=== PATIENT | female | born 1970 | race Caucasian/White ===

== ENCOUNTER → 2016-08-05 | Outpatient (CLI) | payer BC ==
[2016-08-05 11:08] LABS: CHLORIDE,CL 103 mmol/L (98-110); SODIUM,NA 140 mmol/L (136-146)
== END | disposition home or self-care (01) ==
LOC: MW.CHFP 10:00
PROVIDERS: ATTEND Student in an Organized Health Care Education/Training Program
DX: Z01.818 Encounter for other preprocedural examination (principal); I10 Essential (primary) hypertension; E78.1 Pure hyperglyceridemia
CPT/HCPCS: 36415; 80053; 81001; 84439; 84443; 85025; 85610; 85730

== ENCOUNTER → 2016-08-13 | Outpatient (CLI) | payer BC ==
--- NOTE | 2016-08-13 14:58 | CR ---
EXAMINATION: Two-view chest (PA and Lateral views). HISTORY: Hypertension. FINDINGS: The trachea is midline. The cardiomediastinal silhouette is within normal limits. No pulmonary infil trates, effusions or pneumothorax. Osseous structures appear unremarkable. IMPRESSION: No acute cardiopulmonary process.
== END ==
LOC: MW.CHFP 14:11
PROVIDERS: ATTEND Student in an Organized Health Care Education/Training Program
DX: I10 Essential (primary) hypertension (principal); N39.0 Urinary tract infection, site not specified
CPT/HCPCS: 71020; 71020-26; 81001

== ENCOUNTER 2017-10-26 06:36 | Observation (INO) | payer BC ==
[2017-10-26] MEDS ORDERED: Aspirin 325 MG Tab PO ONE (07:05)
[2017-10-26] MEDS ORDERED: Sodium Chloride 0.9% 2.5 ML Syringe FLUSH PRN (07:05)
[2017-10-26] MEDS ORDERED: Sodium Chloride 0.9% 10 ML Syringe FLUSH PRN (07:05)
--- NOTE | 2017-10-26 07:08 | EDM.PDOC ---
ED HPI GENERAL MEDICAL PROBLEM - General Chief Complaint: Chest Pain Stated Complaint: CHEST PAINS Time Seen by Provider: 10/26/17 06:58 - History of Present Illness INITIAL COMMENTS - FREE TEXT/NARRATIVE: HISTORY AND PHYSICAL: History of present illness: Patient 47-year-old female presents with a concern chest and upper back pain has been 1 day she equivocates regarding any associated shortness of breath but no diaphoresis nausea vomiting or other complaints. She denies palpitations she denies known cardiac disease Review of systems: As per history of present illness and below otherwise all systems reviewed and negative. Past medical history: As per history of present illness and as reviewed below otherwise noncontributory. Surgical history: As per history of present illness and as reviewed below otherwise noncontributory. Social history: No reported history of drug or alcohol abuse. Family history: As per history of present illness and as reviewed below otherwise noncontributory. Physical exam: HEENT: Atraumatic, normocephalic, pupils reactive, negative for conjunctival pallor or scleral icterus, mucous membranes moist, throat clear, neck supple, nontender, trachea midline. Lungs: Clear to auscultation, breath sounds equal bilaterally, chest nontender. Heart: S1S2, regular, negative for clicks, rubs, or JVD. Abdomen: Soft, nondistended, nontender. Negative for masses or hepatosplenomegaly. Negative for costovertebral tenderness. Pelvis: Stable nontender. Genitourinary: Deferred. Rectal: Deferred. Extremities: Atraumatic, negative for cords or calf pain. Neurovascular unremarkable. Neuro: Awake, alert, anxious, oriented. Cranial nerves II through XII unremarkable. Cerebellum unremarkable. Motor and sensory unremarkable throughout. Exam nonfocal. Diagnostics: CBC CMP PT/INR d-dimer and troponin chest x-ray EKG Therapeutics: IV O2 monitor aspirin 324 mg sublingual nitroglycerin as directed Impression: #1 chest pain Definitive disposition and diagnosis as appropriate pending reevaluation and review of above. chest Pain Score (Numeric/FACES): 7 - Related Data Allergies Allergy/AdvReac Type Severity Reaction Status Date / Time Penicillins Allergy Rash Verified 10/26/17 06:48 Home Meds: Home Meds . [No Known Home Meds] 10/26/17 [History] Past Medical History - Past Health History Medical/Surgical History: Denies Medical/Surgical History Social & Family History - Family History Family Medical History: Noncontributory - Tobacco Use Smoking Status *Q: Never Smoker - Recreational Drug Use Recreational Drug Use: No ED ROS GENERAL - Review of Systems Review Of Systems: ROS reveals no pertinent complaints other than HPI. ED EXAM, GENERAL - Physical Exam Exam: See Below (See dictation) Course - Vital Signs Last Recorded V/S: Last Vital Signs Temp 37.4 C 10/26/17 06:36 Pulse 80 10/26/17 07:44 Resp 16 10/26/17 07:44 BP 131/84 10/26/17 07:44 Pulse Ox 97 10/26/17 07:44 - Orders/Labs/Meds Orders: Active Orders 24 hr Category Date Time Status Cardiac Monitoring [RC] . DIRECTED Care 10/26/17 06:58 Active EKG Documentation Completion [RC] STAT Care 10/26/17 06:51 Active Oxygen Therapy, ED [RC] ASDIRECTED Care 10/26/17 06:58 Active Pulse Oximetry [RC] ASDIRECTED Care 10/26/17 06:58 Active Chest 1V Frontal [CR] Stat Exams 10/26/17 07:05 Taken Sodium Chloride 0.9% [Normal Saline] 1,000 ml Med 10/26/17 07:15 Active IV STAT Sodium Chloride 0.9% [Saline Flush] Med 10/26/17 07:05 Active 10 ml FLUSH ASDIRECTED PRN Sodium Chloride 0.9% [Saline Flush] Med 10/26/17 07:05 Active 2.5 ml FLUSH ASDIRECTED PRN Saline Lock Insert [OM.PC] Stat Oth 10/26/17 06:58 Ordered Medication Orders Sodium Chloride (Normal Saline) 1,000 mls @ 125 mls/hr IV STAT SUMIT Last Admin: 10/26/17 07:23 Dose: 125 mls/hr Sodium Chloride (Saline Flush) 10 ml FLUSH ASDIRECTED PRN PRN Reason: Keep Vein Open Sodium Chloride (Saline Flush) 2.5 ml FLUSH ASDIRECTED PRN PRN Reason: Keep Vein Open Labs: Laboratory Tests 10/26/17 10/26/17 10/26/17 Range/Units 06:45 06:45 06:45 WBC 7.62 (4.0-11.0) K/uL RBC 4.75 (4.30-5.90) M/uL Hgb 14.1 (12.0-16.0) g/dL Hct 40.1 (36.0-46.0) % MCV 84.4 (80.0-98.0) fL MCH 29.7 (27.0-32.0) pg MCHC 35.2 (31.0-37.0) g/dL RDW Std Deviation 40.5 (28.0-62.0) fl RDW Coeff of Gurmeet 14 (11.0-15.0) % Plt Count 176 (150-400) K/uL MPV 10.90 (7.40-12.00) fL Neut % (Auto) 54.2 (48.0-80.0) % Lymph % (Auto) 36.2 (16.0-40.0) % [place] % (Auto) 7.2 (0.0-15.0) % Eos % (Auto) 2.0 (0.0-7.0) % Baso % (Auto) 0.4 (0.0-1.5) % Neut # (Auto) 4.1 (1.4-5.7) K/uL Lymph # (Auto) 2.8 H (0.6-2.4) K/uL Hyde # (Auto) 0.6 (0.0-0.8) K/uL Eos # (Auto) 0.2 (0.0-0.7) K/uL Baso # (Auto) 0.0 (0.0-0.1) K/uL Nucleated RBC % 0.0 /100WBC Nucleated RBCs # 0 K/uL INR 1.05 D-Dimer, Quantitative 0.22 (0.0-0.52) mg/LFEU Sodium 141 (136-145) mmol/L Potassium 3.6 (3.5-5.1) mmol/L Chloride 106 (98-107) mmol/L Carbon Dioxide 27.0 (21.0-32.0) mmol/L BUN 16 (7.0-18.0) mg/dL Creatinine 0.8 (0.6-1.0) mg/dL Est Cr Clr Drug Dosing 86.36 mL/min Estimated GFR (MDRD) > 60.0 ml/min Glucose 94 (74-106) mg/dL Calcium 8.7 (8.5-10.1) mg/dL Total Bilirubin 0.6 (0.2-1.0) mg/dL AST 13 L (15-37) IU/L ALT 15 (14-63) IU/L Alkaline Phosphatase 50 (46-116) U/L Troponin I < 0.050 (0.000-0.056) ng/mL Total Protein 7.0 (6.4-8.2) g/dL Albumin 3.9 (3.4-5.0) g/dL Globulin 3.1 (2.0-3.5) g/dL Albumin/Globulin Ratio 1.3 (1.3-2.8) Meds: Medications Generic Name Dose Route Start Last Admin Trade Name Freq PRN Reason Stop Dose Admin Sodium Chloride 1,000 mls @ 125 mls/hr 10/26/17 07:15 10/26/17 07:23 Normal Saline IV 125 mls/hr STAT SUMIT Administration Sodium Chloride 10 ml 10/26/17 07:05 Saline Flush FLUSH ASDIRECTED PRN Keep Vein Open Sodium Chloride 2.5 ml 10/26/17 07:05 Saline Flush FLUSH ASDIRECTED PRN Keep Vein Open Discontinued Medications Generic Name Dose Route Start Last Admin Trade Name Freq PRN Reason Stop Dose Admin Aspirin 325 mg 10/26/17 07:05 10/26/17 07:19 Aspirin PO 10/26/17 07:06 325 mg ONETIME ONE Administration Morphine Sulfate 2 mg 10/26/17 08:10 10/26/17 08:15 Morphine IVPUSH 10/26/17 08:11 2 mg ONETIME ONE Administration Nitroglycerin 0.4 mg 10/26/17 07:05 10/26/17 07:39 Nitrostat SL 0.4 mg Q5M PRN Administration Chest Pain Departure - Departure Time of Disposition: 08:21 Disposition: Refer to Observation Condition: Good Clinical Impression: Atypical chest pain - Discharge Information Forms: ED Department Discharge - My Orders Last 24 Hours: My Active Orders 10/26/17 06:58 Cardiac Monitoring [RC] . DIRECTED Oxygen Therapy, ED [RC] ASDIRECTED Pulse Oximetry [RC] ASDIRECTED Saline Lock Insert [OM.PC] Stat 10/26/17 07:05 Chest 1V Frontal [CR] Stat Sodium Chloride 0.9% [Saline Flush] 10 ml FLUSH ASDIRECTED PRN Sodium Chloride 0.9% [Saline Flush] 2.5 ml FLUSH ASDIRECTED PRN 10/26/17 07:15 Sodium Chloride 0.9% [Normal Saline] 1,000 ml IV STAT - Assessment/Plan Last 24 Hours: My Active Orders 10/26/17 06:58 Cardiac Monitoring [RC] . DIRECTED Oxygen Therapy, ED [RC] ASDIRECTED Pulse Oximetry [RC] ASDIRECTED Saline Lock Insert [OM.PC] Stat 10/26/17 07:05 Chest 1V Frontal [CR] Stat Sodium Chloride 0.9% [Saline Flush] 10 ml FLUSH ASDIRECTED PRN Sodium Chloride 0.9% [Saline Flush] 2.5 ml FLUSH ASDIRECTED PRN 10/26/17 07:15 Sodium Chloride 0.9% [Normal Saline] 1,000 ml IV STAT
[2017-10-26] MEDS ORDERED: Sodium Chloride 0.9% 1,000 ML IV SCH (07:15)
[2017-10-26] MEDS: Nitroglycerin 0.4 MG Tab.SL SL PRN ×3 (07:27→07:39)
[2017-10-26 07:40] LABS: CHLORIDE,CL 106 mmol/L (98-107); SODIUM,NA 141 mmol/L (136-145)
[2017-10-26] MEDS ORDERED: Morphine 4 MG/ML Syringe IVPUSH ONE (08:10)
[2017-10-26] MEDS ORDERED: Acetaminophen 325 MG Tab PO PRN (09:32)
[2017-10-26] MEDS ORDERED: Ibuprofen 400 MG Tab PO PRN (09:32)
[2017-10-26] MEDS ORDERED: Morphine 2 MG/ML Syringe IVPUSH PRN (09:32)
[2017-10-26] MEDS ORDERED: tiZANidine 4 MG Tab PO ONE ×2 (09:38→10:28)
--- NOTE | 2017-10-26 09:42 | CR ---
EXAM DATE: 10/26/17 PATIENT'S AGE: 47 Patient: RANI GUTIÉRREZ Facility: [place], [place] Site . Site : 1970 Study: XRay Chest [id number]/5/2018 7:29:15 AM Ordering Physician: Kory Hampton Final Report: HISTORY: Chest pain. FINDINGS: AP portable chest radiograph is compared to 13 Oct 2016. Cardiac silhouette is normal. Pulmonary vasculature is free of cephalization. No consolidation, pleural effusion or pneumothorax is seen. IMPRESSION: No acute cardiopulmonary disease. Dictated by Jenn Barker MD @ 10/26/2017 7:36:55 AM Dictated by: Jenn Barker MD @ 10/26/2017 07:37:00 (Electronic Signature) Report Signed by Proxy. [facility]
--- NOTE | 2017-10-26 09:46 | PCM.HP ---
H&P History of Present Illness - General Date of Service: 10/26/17 Admit Problem/Dx: Admission Diagnosis/Problem Admission Diagnosis/Problem Atypical chest pain Source of Information: Patient History Limitations: Reports: No Limitations - History of Present Illness Initial Comments - Free Text/Narative: 47F with a past hx of gastric sleeve last year presented today to the ER with a CC of chest pain. As per the patient, she has been experiencing a combination of back/chest pain that is generalized, worsened with a deep breath, non- radiating. She rates it a 10/31. It began at 3pm on 10/25/2017. It has been constant since. She took 2 regular strength tylenols last night before bed which she states did not help. She was able to sleep just fine. She felt the pain was too significant to go to work this morning when she woke up so went to the ER. She has never felt anything like this before. She feels that she likely has a muscle spasm. She exercises regularly. She doesn't f/u with a doctor in regards to her gastric sleeve. She tells me that she takes a multivitamin and vitamin B12 for supplementation after the procedure. Denies any fever, chills, cough, recent travel, nausea or vomiting. Aside from this ongoing pain, she has no other complaints. ER Course: CXR - normal EKG - NSR Troponin, CBC, CMP, D-dimer, INR - negative Aspirin 325mg PO Morphine 2mg IV x1 1L NS bolus x1 chest Pain Score (Numeric/FACES): 6 - Related Data Allergies/Adverse Reactions: Allergies Allergy/AdvReac Type Severity Reaction Status Date / Time Penicillins Allergy Rash Verified 10/26/17 06:48 Home Medications: Home Meds . [No Known Home Meds] 10/26/17 [History] Past Medical History - Past Health History Medical/Surgical History: Denies Medical/Surgical History - Past Surgical History GI Surgical History: Reports: Bariatric Procedure Other GI Surgeries/Procedures: August 2016 Social & Family History - Family History Family Medical History: Noncontributory - Tobacco Use Smoking Status *Q: Never Smoker Second Hand Smoke Exposure: No - Caffeine Use Caffeine Use: Reports: Coffee - Recreational Drug Use Recreational Drug Use: No H&P Review of Systems - Review of Systems: Review Of Systems: See Below General: Reports: Weight Loss (110lbs weight loss over the past 1 year) HEENT: Reports: No Symptoms Pulmonary: Reports: Pleuritic Chest Pain Cardiovascular: Reports: No Symptoms Gastrointestinal: Reports: No Symptoms Genitourinary: Reports: No Symptoms Musculoskeletal: Reports: No Symptoms Skin: Reports: No Symptoms Psychiatric: Reports: No Symptoms Neurological: Reports: No Symptoms Hematologic/Lymphatic: Reports: No Symptoms Immunologic: Reports: No Symptoms Exam - Exam Exam: See Below - Vital Signs Vital Signs: Last Vital Signs Temp 37.0 C 10/26/17 09:21 Pulse 52 L 10/26/17 09:21 Resp 20 10/26/17 09:21 BP 156/69 H 10/26/17 09:21 Pulse Ox 100 10/26/17 09:21 Weight: 163.2 kg - Exam General: Alert, Oriented, 4 HEENT: PERRLA, Hearing Intact, Mucosa Moist & [place], Nares Patent, Normal Nasal Septum, Posterior Pharynx Clear, Conjunctiva Clear, EOMI, EACs Clear, TMs Clear Neck: Supple, Trachea Midline, 2 Lungs: Clear to Auscultation, Normal Respiratory Effort Cardiovascular: Regular Rate, Regular Rhythm GI/Abdominal Exam: Normal Bowel Sounds, Soft, Non-Tender, No Organomegaly, No Distention, No Abnormal Bruit, No Mass, Pelvis Stable (Female) Exam: Normal External Exam, Normal Speculum Exam, Normal Bimanual Exam Rectal (Female) Exam: Normal Exam, Normal Rectal Tone Back Exam: Normal Inspection, Full Range of Motion, NT Extremities: Normal Inspection, Normal Range of Motion, Non-Tender, No Pedal Edema, Normal Capillary Refill Peripheral Pulses: 2+: Dorsalis Pedis (L), Dorsalis Pedis (R) Skin: Warm, Dry, Intact Neurological: Cranial Nerves Intact, Reflexes Equal Bilateral Neuro Extensive - Mental Status: Alert, Oriented x3, Normal Mood/Affect, Normal Cognition Neuro Extensive - Motor, Sensory, Reflexes: CN II-XII Intact, Normal Gait, Normal Reflexes Psychiatric: Alert, Normal Affect, Normal Mood - Patient Data Lab Results Last 24 hrs: Laboratory Results - last 24 hr 10/26/17 10/26/17 10/26/17 Range/Units 06:45 06:45 06:45 WBC 7.62 (4.0-11.0) K/uL RBC 4.75 (4.30-5.90) M/uL Hgb 14.1 (12.0-16.0) g/dL Hct 40.1 (36.0-46.0) % MCV 84.4 (80.0-98.0) fL MCH 29.7 (27.0-32.0) pg MCHC 35.2 (31.0-37.0) g/dL RDW Std Deviation 40.5 (28.0-62.0) fl RDW Coeff of Gurmeet 14 (11.0-15.0) % Plt Count 176 (150-400) K/uL MPV 10.90 (7.40-12.00) fL Neut % (Auto) 54.2 (48.0-80.0) % Lymph % (Auto) 36.2 (16.0-40.0) % [place] % (Auto) 7.2 (0.0-15.0) % Eos % (Auto) 2.0 (0.0-7.0) % Baso % (Auto) 0.4 (0.0-1.5) % Neut # (Auto) 4.1 (1.4-5.7) K/uL Lymph # (Auto) 2.8 H (0.6-2.4) K/uL [place]wey # (Auto) 0.6 (0.0-0.8) K/uL Eos # (Auto) 0.2 (0.0-0.7) K/uL Baso # (Auto) 0.0 (0.0-0.1) K/uL Nucleated RBC % 0.0 /100WBC Nucleated RBCs # 0 K/uL INR 1.05 D-Dimer, Quantitative 0.22 (0.0-0.52) mg/LFEU Sodium 141 (136-145) mmol/L Potassium 3.6 (3.5-5.1) mmol/L Chloride 106 (98-107) mmol/L Carbon Dioxide 27.0 (21.0-32.0) mmol/L BUN 16 (7.0-18.0) mg/dL Creatinine 0.8 (0.6-1.0) mg/dL Est Cr Clr Drug Dosing 86.36 mL/min Estimated GFR (MDRD) > 60.0 ml/min Glucose 94 (74-106) mg/dL Calcium 8.7 (8.5-10.1) mg/dL Total Bilirubin 0.6 (0.2-1.0) mg/dL AST 13 L (15-37) IU/L ALT 15 (14-63) IU/L Alkaline Phosphatase 50 (46-116) U/L Troponin I < 0.050 (0.000-0.056) ng/mL Total Protein 7.0 (6.4-8.2) g/dL Albumin 3.9 (3.4-5.0) g/dL Globulin 3.1 (2.0-3.5) g/dL Albumin/Globulin Ratio 1.3 (1.3-2.8) Result Diagrams: 10/26/17 06:45 10/26/17 06:45 Problem List Initiated/Reviewed/Updated: Yes Orders Last 24hrs: Active Orders 24 hr Category Date Time Status Patient Status [ADT] Stat ADT 10/26/17 08:22 Active Cardiac Monitoring [RC] CONTINUOUS Care 10/26/17 09:32 Ordered Cardiac Monitoring [RC] Q8H Care 10/26/17 06:58 Active EKG Documentation Completion [RC] STAT Care 10/26/17 06:51 Active Oxygen Therapy [RC] PRN Care 10/26/17 09:32 Ordered Oxygen Therapy, ED [RC] ASDIRECTED Care 10/26/17 06:58 Active Pulse Oximetry [RC] ASDIRECTED Care 10/26/17 06:58 Active Up ad Micheline [RC] ASDIRECTED Care 10/26/17 09:32 Ordered VTE/DVT Education [RC] PER UNIT ROUTINE Care 10/26/17 09:32 Ordered Vital Signs [RC] Q4H Care 10/26/17 09:32 Ordered Regular Diet [DIET] Diet 10/26/17 Lunch Ordered Chest 1V Frontal [CR] Stat Exams 10/26/17 07:05 Taken TROPONIN I [CHEM] Q6H Lab 10/26/17 14:00 Ordered TROPONIN I [CHEM] Q6H Lab 10/26/17 20:00 Ordered Acetaminophen [Tylenol] Med 10/26/17 09:32 Ordered 650 mg PO Q4H PRN Ibuprofen [Motrin] Med 10/26/17 09:32 Ordered 400 mg PO Q6H PRN Morphine Med 10/26/17 09:32 Ordered 2 mg IVPUSH Q2H PRN Sodium Chloride 0.9% [Normal Saline] 1,000 ml Med 10/26/17 07:15 Active IV STAT Sodium Chloride 0.9% [Saline Flush] Med 10/26/17 07:05 Active 10 ml FLUSH ASDIRECTED PRN Sodium Chloride 0.9% [Saline Flush] Med 10/26/17 07:05 Active 2.5 ml FLUSH ASDIRECTED PRN tiZANidine [Zanaflex] Med 10/26/17 09:38 Once 2 mg PO DAILY ONE Saline Lock Insert [OM.PC] Stat Oth 10/26/17 06:58 Ordered Sequential Compression Device [OM.PC] Per Unit Routine Oth 10/26/17 09:33 Ordered Resuscitation Status Routine Resus Stat 10/26/17 09:32 Ordered Medication Orders Acetaminophen (Tylenol) 650 mg PO Q4H PRN PRN Reason: Pain (Mild 1-3)/fever Sodium Chloride (Normal Saline) 1,000 mls @ 125 mls/hr IV STAT SUMIT Last Admin: 10/26/17 07:23 Dose: 125 mls/hr Ibuprofen (Motrin) 400 mg PO Q6H PRN PRN Reason: Pain (mild 1-3) Morphine Sulfate (Morphine) 2 mg IVPUSH Q2H PRN PRN Reason: Pain (severe 7-10) Stop: 10/27/17 09:34 Sodium Chloride (Saline Flush) 10 ml FLUSH ASDIRECTED PRN PRN Reason: Keep Vein Open Sodium Chloride (Saline Flush) 2.5 ml FLUSH ASDIRECTED PRN PRN Reason: Keep Vein Open Tizanidine HCl (Zanaflex) 2 mg PO DAILY ONE Stop: 10/26/17 09:39 Assessment/Plan Comment:: Assessment: 47F with a past hx of gastric sleeve presenting with atypical chest pain that appears to be pleuritic in nature. #1. Atypical chest pain - ACS Rule out #2. History of gastric sleeve Plan: #1. Admit to the floor for observation. Full code. SCD for DVT prophylaxis #2. Cardiac telemetry #3. Troponin q6h x2 #4. Given the history the patient is giving me along with the labs available, this sounds to be musculoskeletal in nature like a muscle spasm. Will try Tizanidine 2mg PO, if there is a response, I have added a PRN order for it. Likelihood for ACS or PE is low but still on differential. #5. Regular diet. #6. If labs are reassuring, anticipate discharge tomorrow with f/u with PCP.
[2017-10-26] MEDS ORDERED: tiZANidine 4 MG Tab PO PRN ×2 (09:54→10:22)
== END 2017-10-26 22:08 | disposition home or self-care (01) ==
LOC: MW.ED 06:36 → MW.MS 09:09
PROVIDERS: ADMIT Internal Medicine; ATTEND Internal Medicine
DX: R07.89 Other chest pain (principal); M54.9 Dorsalgia, unspecified; Z88.0 Allergy status to penicillin; Z98.84 Bariatric surgery status
CPT/HCPCS: 36415; 71045; 80053; 84484; 85025; 85379; 85610; 93005; 96361; 96374; 99285; A9270; J2270; J7040; 96376; 99283; G0378

== ENCOUNTER 2018-01-09 11:11 | Emergency (ER) | payer BC ==
--- NOTE | 2018-01-09 11:30 | EDM.PDOC ---
ED HPI GENERAL MEDICAL PROBLEM - General Chief Complaint: Lower Extremity Injury/Pain Stated Complaint: LT ANKLE HURTS Time Seen by Provider: 01/09/18 11:27 Source of Information: Reports: Patient History Limitations: Reports: No Limitations - History of Present Illness INITIAL COMMENTS - FREE TEXT/NARRATIVE: HISTORY AND PHYSICAL: History of present illness: Patient is a 47-year-old female here with left ankle pain. She states that yesterday she was walking on carpet with her flip-flops on and her flip flop got caught on the carpet and she fell. She is uncertain if she twisted her ankle on the way down but ankle swelled up and she has pain at the lateral ankle. Patient has not been able to walk on left ankle. Review of systems: As per history of present illness and below otherwise all systems reviewed and negative. Past medical history: As per history of present illness and as reviewed below otherwise noncontributory. Surgical history: As per history of present illness and as reviewed below otherwise noncontributory. Social history: No reported history of drug or alcohol abuse. Family history: As per history of present illness and as reviewed below otherwise noncontributory. Physical exam: General: patient sitting comfortably with foot up but in no acute distress HEENT: Atraumatic, normocephalic, pupils reactive, negative for conjunctival pallor or scleral icterus, mucous membranes moist, throat clear, neck supple, nontender, trachea midline. Lungs: Clear to auscultation, breath sounds equal bilaterally, chest nontender. Heart: S1S2, regular, negative for clicks, rubs, or JVD. Abdomen: Soft, nondistended, nontender. Negative for masses or hepatosplenomegaly. Negative for costovertebral tenderness. Pelvis: Stable nontender. Genitourinary: Deferred. Rectal: Deferred. Extremities: Left lateral ankle is swollen with ecchymosis. There is tenderness just inferior to the lateral malleolus. No pain with tib-fib squeeze test. negative for cords or calf pain. Neurovascular unremarkable. Neuro: Awake, alert, oriented. Cranial nerves II through XII unremarkable. Cerebellum unremarkable. Motor and sensory unremarkable throughout. Exam nonfocal. Notes: Diagnostics: X-ray left ankle Therapeutics: CAM boot Impression: Ankle sprain, left Plan: 1. Ice, elevate, motrin and wear CAM boot as instructed 2. Follow up with ortho or primary care provider 3. Return to ED as needed as discussed Definitive disposition and diagnosis as appropriate pending reevaluation and review of above. Left Ankle Pain Score (Numeric/FACES): 7 - Related Data Allergies Allergy/AdvReac Type Severity Reaction Status Date / Time Penicillins Allergy Rash Verified 01/09/18 11:20 Past Medical History - Past Health History Medical/Surgical History: Denies Medical/Surgical History - Past Surgical History GI Surgical History: Reports: Bariatric Procedure Other GI Surgeries/Procedures: August 2016 Social & Family History - Family History Family Medical History: Noncontributory - Tobacco Use Smoking Status *Q: Never Smoker Second Hand Smoke Exposure: No - Caffeine Use Caffeine Use: Reports: None - Recreational Drug Use Recreational Drug Use: No Review of Systems - Review of Systems Review Of Systems: ROS reveals no pertinent complaints other than HPI. ED EXAM, GENERAL - Physical Exam Exam: See Below (see dictation) Course - Vital Signs Last Recorded V/S: Last Vital Signs Temp 36.1 C 01/09/18 11:17 Pulse 66 01/09/18 11:17 Resp 18 01/09/18 11:17 BP 127/70 01/09/18 11:17 Pulse Ox 100 01/09/18 11:17 - Orders/Labs/Meds Orders: Active Orders 24 hr Category Date Time Status Ankle Min 3V Lt [CR] Stat Exams 01/09/18 11:26 Taken Departure - Departure Time of Disposition: 12:02 Disposition: Admitted As Inpatient 68 Condition: Good Clinical Impression: Left ankle sprain - Discharge Information Referrals: PCP,None [Primary Care Provider] - Forms: ED Department Discharge Additional Instructions: The following information is given to patients seen in the emergency department who are being discharged to home. This information is to outline your options for follow-up care. We provide all patients seen in our emergency department with a follow-up referral. The need for follow-up, as well as the timing and circumstances, are variable depending upon the specifics of your emergency department visit. If you don't have a primary care physician on staff, we will provide you with a referral. We always advise you to contact your personal physician following an emergency department visit to inform them of the circumstance of the visit and for follow-up with them and/or the need for any referrals to a consulting specialist. The emergency department will also refer you to a specialist when appropriate. This referral assures that you have the opportunity for follow-up care with a specialist. All of these measure are taken in an effort to provide you with optimal care, which includes your follow-up. Under all circumstances we always encourage you to contact your private physician who remains a resource for coordinating your care. When calling for follow-up care, please make the office aware that this follow-up is from your recent emergency room visit. If for any reason you are refused follow-up, please contact the [facility] at and asked to speak to the emergency department charge nurse. [facility] Professional Building [address] [place] [address], [address] [place] [address] [facility] [address] [place] [id number] 1. Ice, elevate, motrin and wear CAM boot as instructed 2. Follow up with ortho or primary care provider 3. Return to ED as needed as discussed - My Orders Last 24 Hours: My Active Orders 01/09/18 11:26 Ankle Min 3V Lt [CR] Stat - Assessment/Plan Last 24 Hours: My Active Orders 01/09/18 11:26 Ankle Min 3V Lt [CR] Stat
--- NOTE | 2018-01-10 14:24 | CR ---
EXAM DATE: 01/09/18 PATIENT'S AGE: 47 Patient: RANI GUTIÉRREZ Facility: [place], [place] Site . Site : 1970 Study: XRay Extremity Left ankle [id number]/19/2018 11:50:45 AM Ordering Physician: Doctor Roladn Final Report: INDICATION: Pain after fall. TECHNIQUE: Three views of the left ankle. FINDINGS: No acute fracture or dislocation. The mortise is uniform. Soft tissues are intact. Mild lateral soft tissue swelling. Plantar calcaneal spur and calcification at the Achilles tendon insertion site. IMPRESSION: Left ankle is negative for fracture. Lateral soft tissue swelling. Dictated by Swapnil Bermudez MD @ Jan 09 2018 11:59AM (Electronic Signature) Report Signed by Proxy. JENI
== END 2018-01-09 12:11 | disposition home or self-care (01) ==
LOC: MW.ED 11:11
DX: S93.402A Sprain of unspecified ligament of left ankle, initial encounter (principal); W18.09XA Striking against other object with subsequent fall, initial encounter; Z88.0 Allergy status to penicillin
CPT/HCPCS: 73610-26-LT; 73610-LT; 99282; 99283

== ENCOUNTER 2020-12-22 14:14 | Emergency (ER) | payer BC ==
--- NOTE | 2020-12-22 14:17 | EDM.PDOC ---
ED HPI GENERAL MEDICAL PROBLEM - General Stated Complaint: CAN'T MOVE LFT ARM Time Seen by Provider: 12/22/20 14:16 Source of Information: Reports: Patient History Limitations: Reports: No Limitations - History of Present Illness INITIAL COMMENTS - FREE TEXT/NARRATIVE: 42-year-old female presents for left shoulder pain and limited range of motion. Patient notes over the last couple of days she has felt pain in the lateral aspect of the left shoulder radiating into the upper back. She states that the pain worsened today and is "like I got kicked by a horse". She also notes limited range of motion of the shoulder and feels like she cannot lift the shoulder. She denies any falls or injuries. Left Shoulder Pain Score (Numeric/FACES): 6 - Related Data Allergies Allergy/AdvReac Type Severity Reaction Status Date / Time Penicillins Allergy Rash Verified 12/22/20 14:35 Home Meds: Home Meds . [No Known Home Meds] 12/22/20 [History] Past Medical History - Past Health History Medical/Surgical History: Denies Medical/Surgical History - Past Surgical History GI Surgical History: Reports: Bariatric Procedure Other GI Surgeries/Procedures: August 2016 Social & Family History - Family History Family Medical History: No Pertinent Family History - Caffeine Use Caffeine Use: Reports: None ED ROS GENERAL - Review of Systems Review Of Systems: Comprehensive ROS is negative, except as noted in HPI. 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; limited abduction of left shoulder 2/2 pain) Neurological: Alert, Normal Cognition, Normal Gait Psychiatric: Normal Affect, Normal Mood Skin Exam: Warm, Dry, Intact, Normal Color Course - Vital Signs Last Recorded V/S: Last Vital Signs Temp 98.5 F 12/22/20 14:36 Pulse 93 12/22/20 14:36 Resp 16 12/22/20 14:36 BP 130/86 12/22/20 14:36 Pulse Ox 96 12/22/20 14:36 - Orders/Labs/Meds Meds: Medications Discontinued Medications Generic Name Dose Route Start Last Admin Trade Name Michelle PRN Reason Stop Dose Admin Ibuprofen 600 mg 12/22/20 14:38 12/22/20 15:20 Ibuprofen 600 Mg Tab PO 12/22/20 14:39 600 mg ONETIME ONE Administration - Re-Assessments/Exams Free Text/Narrative Re-Assessment/Exam: 12/22/20 14:41 We will get x-ray imaging of the left shoulder. Will give Motrin for analgesia. Patient notes that she is driving so will defer opioid medications or muscle relaxants at this time. We will follow-up x-ray imaging and disposition accordingly. 12/22/20 16:12 X-ray of the shoulder is unremarkable. Will discharge patient with muscle re laxant and analgesia. Will refer patient to orthopedics for further work-up. Departure - Departure Time of Disposition: 16:13 Disposition: Home, Self-Care 01 Condition: Good Clinical Impression: Shoulder pain Qualifiers: Chronicity: acute Laterality: left Qualified Code(s): M25.512 - Pain in left shoulder - Discharge Information Instructions: Shoulder Pain Referrals: Moises Miranda MD [Primary Care Provider] - Additional Instructions: The x-ray image of your shoulder is unremarkable. However x-ray images are really just looking at the bones and the joint spaces and there are certain pathologies that can be missed with x-ray imaging. I sent a prescription for pain medication and muscle relaxant to your pharmacy to take for the next few days to see if this can help with your symptoms. I also placed you in a orthopedics follow-up list as I recommend following up with an orthopedic physician for further assessment and potential advanced imaging such as MRI. The following information is given to patients seen in the emergency department who are being discharged to home. This information is to outline your options for follow-up care. We provide all patients seen in our emergency department with a follow-up referral. The need for follow-up, as well as the timing and circumstances, are variable depending upon the specifics of your emergency department visit. If you don't have a primary care physician on staff, we will provide you with a referral. We always advise you to contact your personal physician following an emergency department visit to inform them of the circumstance of the visit and for follow-up with them and/or the need for any referrals to a consulting specialist. The emergency department will also refer you to a specialist when appropriate. This referral assures that you have the opportunity for follow-up care with a specialist. All of these measure are taken in an effort to provide you with optimal care, which includes your follow-up. Under all circumstances we always encourage you to contact your private physician who remains a resource for coordinating your care. When calling for follow-up care, please make the office aware that this follow-up is from your recent emergency room visit. If for any reason you are refused follow-up, please contact the [facility] Emergency Department at and asked to speak to the emergency department charge nurse. Please follow up with your primary care physician. If you do not have a primary care physician, see below: [facility] [address] [place] [id number] [facility] [address] [place] [address] [facility] [address] [place] [id number] Sepsis Event Note (ED) - Focused Exam Vital Signs: Vital Signs Temp Pulse Resp BP Pulse Ox 12/22/20 14:36 98.5 F 93 16 130/86 96
[2020-12-22] MEDS ORDERED: Ibuprofen 600 MG Tab PO ONE (14:38)
--- NOTE | 2020-12-22 16:11 | CR ---
INDICATION: Atraumatic left acromioclavicular joint pain. Limited abduction. COMPARISON: None available. FINDINGS: The left shoulder was examined with AP internal and external rotation and outlet views for a total of three views. The osseous structures are in anatomic alignment without fracture or dislocation. There is anatomic alignment of the humeral head and glenoid. The visualized chest is clear. IMPRESSION: Normal left shoulder. Dictated by Adin Diez MD @ 12/22/2020 4:11:[address] Adin Diez @ Dec 22 2020 4:11PM
== END 2020-12-22 16:22 | disposition home or self-care (01) ==
LOC: MW.ED 14:14
DX: M25.512 Pain in left shoulder (principal); Z88.0 Allergy status to penicillin
CPT/HCPCS: 73030; 99283; A9270

== ENCOUNTER 2021-05-23 17:01 | Emergency (ER) | payer BC ==
[2021-05-23 18:25] LABS: CORONAVIRUS COVID-19 NAA POSITIVE (NEGATIVE); INFLUENZA A NAA NEGATIVE (NEGATIVE); INFLUENZA B NAA NEGATIVE (NEGATIVE)
--- NOTE | 2021-05-23 19:49 | EDM.PDOC ---
ED HPI GENERAL MEDICAL PROBLEM - General Chief Complaint: Respiratory Problem Stated Complaint: COVID TEST Time Seen by Provider: 05/23/21 19:13 - History of Present Illness INITIAL COMMENTS - FREE TEXT/NARRATIVE: HISTORY AND PHYSICAL: History of present illness: Is a 51-year-old female who has a history significant for gastric sleeve, hysterectomy, no hypertension, diabetes, liver, lung, kidney problems who presents ER today secondary to exposure to Covid and generalized malaise. Patient has a recent fevers, shakes, chills, nausea, vomiting, diarrhea, dysuria, frequency, urgency abdominal pain, chest pain, shortness of breath. Patient ports she is tolerating p.o. solids and liquids well. Patient reports that her had a positive home test for coronavirus. Patient presents ER today for further evaluation. Patient has had her Covid vaccination through [employer]. Review of systems: As per history of present illness and below otherwise all systems reviewed and negative. Past medical history: As per history of present illness and as reviewed below otherwise noncontributory. Surgical history: As per history of present illness and as reviewed below otherwise noncontributory. Social history: No reported history of drug abuse. Family history: As per history of present illness and as reviewed below otherwise noncontributory. Physical exam: HEENT: Atraumatic, normocephalic, pupils reactive, negative for conjunctival pallor or scleral icterus, mucous membranes moist, throat clear, neck supple, nontender, trachea midline. Lungs: Clear to auscultation, breath sounds equal bilaterally, chest nontender. Heart: S1S2, regular, negative for clicks, rubs, or JVD. Abdomen: Soft, nondistended, nontender. Negative for masses or hepatosplenomegaly. Negative for costovertebral tenderness. Pelvis: Stable nontender. Genitourinary: Deferred. Rectal: Deferred. Extremities: Atraumatic, negative for cords or calf pain. Neurovascular unremarkable. Neuro: Awake, alert, oriented. Cranial nerves II through XII unremarkable. Cerebellum unremarkable. Motor and sensory unremarkable throughout. Exam nonfocal. Diagnostics: Covid test positive Therapeutics: I had a detailed discussion with the patient regarding the capability of the infusion center to provided monoclonal antibodies treatment against COVID-19. The potential benefits of this intervention as well as the potential risks and side effects were discussed at length. Questions were sought and answered, and the patient was given handout to review additional information. In addition, a link to the informational website has been provided. I have encouraged the patient to search for additional information about this intervention by reading information at various internet resources. Patient is aware that they are free to change their mind at any time regarding this treatment. At this time, the patient does not want their information to be sent to the infusion center. Assessment and plan: 51-year-old female who presents ER today after being testing positive at home for Covid. Patient has had her Covid vaccination but did not have a booster as of yet. Patient's pulse ox is 97% on room air. Patient's lungs are clear. Patient appears to be no acute distress. Patient has been given the opportunity to obtain Regeneron however at this time he is declining it. He has been encouraged to return the ED if he should change his mind or to call his primary care physician to set up Regeneron therapy for him. I have discussed with him risks of Covid and the need to return to the ED if they should have increased chest pain or shortness of breath. They should also return the ED if they develop any new or concerning symptoms. Body aches Pain Score (Numeric/FACES): 2 - Related Data Allergies Allergy/AdvReac Type Severity Reaction Status Date / Time Penicillins Allergy Rash Verified 12/22/20 14:35 Home Meds: Home Meds . [No Known Home Meds] 05/23/21 [History] Past Medical History - Past Health History Medical/Surgical History: Denies Medical/Surgical History HEENT History: Reports: None Cardiovascular History: Reports: None Respiratory History: Reports: None Gastrointestinal History: Reports: None Genitourinary History: Reports: None Musculoskeletal History: Reports: None Endocrine/Metabolic History: Reports: None Hematologic History: Reports: None Oncologic (Cancer) History: Reports: None - Infectious Disease History Infectious Disease History: Reports: Chicken Pox - Past Surgical History GI Surgical History: Reports: Bariatric Procedure Other GI Surgeries/Procedures: August 2016 Female Surgical History: Reports: Hysterectomy Social & Family History - Family History Family Medical History: No Pertinent Family History HEENT: Reports: None Cardiac: Reports: None Respiratory: Reports: None GI: Reports: None : Reports: None OBGYN: Reports: None Hematologic: Reports: None Immunologic: Reports: None Oncologic: Reports: Breast - Caffeine Use Caffeine Use: Reports: Coffee - Recreational Drug Use Recreational Drug Use: Yes Recreational Drug Type: Reports: Marijuana/Hashish Recreational Drug Use Frequency: Weekly ED ROS GENERAL - Review of Systems Review Of Systems: See Below ED EXAM, GENERAL - Physical Exam Exam: See Below Course - Vital Signs Last Recorded V/S: Last Vital Signs Temp 98.4 F 05/23/21 17:49 Pulse 71 05/23/21 17:49 Resp 16 05/23/21 17:49 BP 162/80 H 05/23/21 17:49 Pulse Ox 97 05/23/21 17:49 - Orders/Labs/Meds Labs: Laboratory Tests 05/23/21 Range/Units 17:37 Influenza Type A RNA NEGATIVE (NEGATIVE) Influenza Type B RNA NEGATIVE (NEGATIVE) SARS-CoV-2 RNA (EDE) POSITIVE H (NEGATIVE) Departure - Departure Time of Disposition: 19:48 Disposition: Home, Self-Care 01 Condition: Good Clinical Impression: COVID-19 virus infection - Discharge Information Instructions: 10 Things You Can Do to Manage Your COVID-19 Symptoms at Home - CDC (12/06/2020), COVID-19: Quarantine vs. Isolation - [facility] (05/09/2020) Additional Instructions: You were seen and evaluated in ER today secondary to signs and symptoms consistent with Covid infection. Your Covid test did come back positive. At this time, you do not meet criteria for inpatient level of care for treatment of coronavirus. Please keep an eye on your oxygen level and return to the ER if your ox level should drop below 90% or if you to start developing a new or concerning symptoms such as shortness of breath, chest pain. You can take acetaminophen as needed for fever and muscle aches. As we discussed, please return to the ED or Dr. Huerta if you should change her mind regarding Regeneron therapy. 1. Your COVID-19 screening is positive. That means you do have the coronavirus and you are considered contagious. Your vital signs and oxygen saturation are well enough that you were able to monitor your symptoms at home. Continue to monitor for trouble breathing, new confusion or inability to arouse, bluish lips or face or any of the other symptoms we discussed -if this occurs please return to the emergency room. 2. Please self quarantine over the next 10 days. Inform any persons that you have been in contact with since you started becoming symptomatic that you have tested positive; they should be made aware and take the appropriate steps as needed. 3. You can take NyQuil during the evening to help get a restful night sleep. May alternate Tylenol and ibuprofen as needed for pain and fever management. 4. The [facility] department will be calling you and following up with you. The [place] [facility] 19 Hotline phone number , They are open Wednesday - Wednesday 7am - 7pm. Follow up with your primary care provider for re-evaluation and re-testing after the 10 day quarantine and discuss when you should be seen. The following information is given to patients seen in the emergency department who are being discharged to home. This information is to outline your options for follow-up care. We provide all patients seen in our emergency department with a follow-up referral. The need for follow-up, as well as the timing and circumstances, are variable depending upon the specifics of your emergency department visit. If you don't have a primary care physician on staff, we will provide you with a referral. We always advise you to contact your personal physician following an emergency department visit to inform them of the circumstance of the visit and for follow-up with them and/or the need for any referrals to a consulting specialist. The emergency department will also refer you to a specialist when appropriate. This referral assures that you have the opportunity for follow-up care with a specialist. All of these measure are taken in an effort to provide you with optimal care, which includes your follow-up. Under all circumstances we always encourage you to contact your private physician who remains a resource for coordinating your care. When calling for follow-up care, please make the office aware that this follow-up is from your recent emergency room visit. If for any reason you are refused follow-up, please contact the [facility] Emergency Department at and asked to speak to the emergency department charge nurse. Lia Servin [facility] [address] [place] [address] [id number] [address] Sepsis Event Note (ED) - Evaluation Sepsis Screening Result: No Definite Risk - Focused Exam Vital Signs: Vital Signs Temp Pulse Resp BP Pulse Ox 05/23/21 17:49 98.4 F 71 16 162/80 H 97
== END 2021-05-23 20:07 | disposition home or self-care (01) ==
LOC: MW.ED 17:01
DX: U07.1 COVID-19 (principal); I10 Essential (primary) hypertension; E11.9 Type 2 diabetes mellitus without complications; Z88.0 Allergy status to penicillin
CPT/HCPCS: 0240U; 99283